=== PATIENT | female | born 1990 | race Caucasian/White ===

== ENCOUNTER 2018-12-19 11:54 | Emergency (ER) | payer OTHER ==
[2018-12-19] MEDS ORDERED: Sodium Chloride 0.9% 2.5 ML Syringe FLUSH PRN (11:55)
[2018-12-19] MEDS ORDERED: Sodium Chloride 0.9% 10 ML Syringe FLUSH PRN (11:55)
[2018-12-19] MEDS ORDERED: Ketorolac 30 MG/ML SDV IVPUSH ONE (11:55)
[2018-12-19] MEDS ORDERED: Sodium Chloride 0.9% 1,000 ML IV ONE (11:55)
[2018-12-19] MEDS ORDERED: Morphine 2 MG/ML Syringe IVPUSH ONE (11:57)
[2018-12-19] MEDS ORDERED: Silver Sulfadiazine 1% Crm 50 GM Tube TOP ONE ×2 (11:58→12:00)
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
== END 2018-12-19 13:45 | disposition home or self-care (01) ==
LOC: MW.ED 11:54
DX: T22.211A Burn of second degree of right forearm, initial encounter (principal); T22.231A Burn of second degree of right upper arm, initial encounter; T20.27XA Burn of second degree of neck, initial encounter; T24.211A Burn of second degree of right thigh, initial encounter; X12.XXXA Contact with other hot fluids, initial encounter
CPT/HCPCS: 16020; 96361; 96374; 99283; J2270; J7040

== ENCOUNTER 2018-12-20 12:52 | Emergency (ER) | payer OTHER ==
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
[2018-12-20] MEDS ORDERED: Silver Sulfadiazine 1% Crm 50 GM Tube TOP ONE (14:01)
== END 2018-12-20 14:24 | disposition home or self-care (01) ==
LOC: MW.ED 12:52
DX: T20.29XA Burn of second degree of multiple sites of head, face, and neck, initial encounter (principal)
CPT/HCPCS: 99282; A9270